=== PATIENT | female | born 1965 | race Caucasian/White ===

== ENCOUNTER → 2019-04-03 | Outpatient (CLI) | payer OTHER, MEDICAID ==
--- NOTE | 2019-04-03 12:44 | KCIC ---
EXAMINATION: Magnetic resonance imaging (MRI) of the lumbar spine without contrast 04/03/2019 11:00 AM HISTORY: Low back and left leg pain. Dextro scoliosis and listhesis. TECHNIQUE: Multiplanar multi-weighted MRI of the lumbar spine was performed without intravenous contrast using the standard lumbar spine protocol. Contrast information: None administered. COMPARISON: None available. FINDINGS: There is minimal dextroconvex curvature of the lumbar spine with apex dextroconvex curvature at L2-L3. No significant lateral listhesis is visualized. There is minimal retrolisthesis of L1 on L2. Suspect limbus vertebra involving anterior inferior endplate of L1. There is Modic type II endplate degenerative changes at L1-L2. Disc desiccation is noted all levels of lumbar spine, sparing L5-S1. Moderate anterior marginal osteophytosis is present. Conus medullaris terminates at L1. Distal spinal cord signal intensity is normal in all sequences. There is congenital narrowing of the spinal canal secondary to shortened pedicles. Abdominal aorta is normal in caliber. No suspicious retroperitoneal abnormality is visualized. Visualized portions of the sacrum appear intact. L1-L2: There is a moderate disc bulge with central disc protrusion. No significant facet arthropathy. There is mild bilateral neuroforaminal stenosis, right greater than left. Mild spinal canal stenosis. L2-L3: There is a mild circumferential disc bulge with right foraminal disc protrusion. Mild facet arthropathy, right greater than left. Mild right neuroforaminal stenosis. Mild spinal canal stenosis. L3-L4: There is a moderate circumferential disc bulge. There is moderate facet arthropathy ligamentum flavum infolding. There is moderate bilateral neuroforaminal stenosis. There is bilateral lateral recess stenosis. Moderate spinal canal stenosis. L4-L5: There is mild circumferential disc bulge with left far lateral annular fissure. There is mild facet arthropathy ligamentum flavum infolding. No significant neuroforaminal or spinal canal stenosis. L5-S1: Disc is normal in configuration. There is mild facet arthropathy. No neuroforaminal or spinal canal stenosis. IMPRESSION: Mild degenerative changes of the lumbar spine, as described in detail above. 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 Suspect limbus vertebra involving the anterior inferior endplate of L1. Electronically signed by: Jessie Nieto MD (04/03/2019 12:41 PM) [id number]
== END | disposition home or self-care (01) ==
LOC: KCIC MRI 11:15
PROVIDERS: ATTEND Physical Medicine & Rehabilitation
DX: M51.26 Other intervertebral disc displacement, lumbar region (principal); M48.061 Spinal stenosis, lumbar region without neurogenic claudication; M12.88 Other specific arthropathies, not elsewhere classified, other specified site; M47.816 Spondylosis without myelopathy or radiculopathy, lumbar region
CPT/HCPCS: 72148